=== PATIENT | male | born 1970 | race African-American/Black ===

== ENCOUNTER 2021-10-29 02:24 | Emergency (ER) | payer MEDICAID ==
[~2021-10-29] VITALS: Ht 172.7 cm; Wt 142.9 kg
--- NOTE | 2021-10-29 02:36 | NUR ---
[id number] FROM FOUR SEASON C/O LEFT EYE X 5 DAYS PAIN AND N/V STARTED LAST NIGHT. PATIENT ALERT AND ORIENTED X3. AMBULATORY WITH NON LABORED BREATHING IN BED 04 ON MONITOR AWAITING MD AGOSTO.
[2021-10-29] MEDS ORDERED: MORPHINE SULFATE INJ 2 MG/ML DISP.SYRIN IV ONE (03:00)
[2021-10-29] MEDS ORDERED: ONDANSETRON HCL/PF 4 MG/2 ML VIAL IV ONE ×2 (03:00→06:30)
[2021-10-29] MEDS ORDERED: FLUORESCEIN SODIUM OPHTH 1 EA STRIP ONE (03:01)
[2021-10-29] MEDS ORDERED: ONDANSETRON HCL/PF 4 MG/2 ML VIAL ONE ×3 (03:12→07:59)
[2021-10-29] MEDS ORDERED: MORPHINE SULFATE INJ 4 MG/ML DISP.SYRIN ONE (03:12)
--- NOTE | 2021-10-29 03:13 | NUR ---
BLOOD COLLECTED AND SENTT O LAB
[2021-10-29 03:23] LABS: BASOPHILS % (AUTO) 0.4 % (0.0-2.0); EOSINOPHILS % (AUTO) 0.5 % (0.0-6.0); HEMATOCRIT 44 % (39-51); HEMOGLOBIN 14.9 g/dL (13.5-17.5); LYMPHOCYTES # (AUTO) 1.1 K/uL (0.8-4.8); LYMPHOCYTES % (AUTO) 13.2 % (20.0-44.0); MEAN CORPUSCULAR HGB CONC 34 g/dl (31.0-36.0); MEAN CORPUSCULAR VOLUME 83 fL (80-96); MONOCYTES # (AUTO) 0.5 K/uL (0.1-1.30); NEUTROPHILS # (AUTO) 6.5 K/uL (1.8-8.9); NEUTROPHILS % (AUTO) 79.9 % (43.0-81.0); PLATELET COUNT (AUTO) 133 K/uL (150-450); RED BLOOD CELL COUNT(AUTO) 5.27 MIL/uL (4.5-6.0); WHITE BLOOD COUNT (AUTO) 8.1 K/uL (4.3-11.0)
[2021-10-29 03:33] LABS: CALCIUM, SERUM 8.7 mg/dL (8.5-10.1); CREATININE 1.2 mg/dL (0.6-1.3); POTASSIUM 3.4 mmol/L (3.5-5.1)
[2021-10-29 03:38] LABS: ALBUMIN 3.5 g/dL (3.4-5.0); BILIRUBIN,DIRECT 0.2 mg/dL (0.0-0.2); BILIRUBIN,TOTAL 0.6 mg/dL (0.2-1.0); TOTAL PROTEIN, SERUM 7.2 g/dL (6.4-8.2)
[2021-10-29] MEDS ORDERED: POTASSIUM CHLORIDE 20 MEQ TAB.PRT.SR PO ONE ×2 (04:00→06:09)
[2021-10-29] MEDS ORDERED: METOCLOPRAMIDE HCL 10 MG/2 ML VIAL ONE ×2 (04:50→09:50)
[2021-10-29] MEDS ORDERED: HYDROMORPHONE 1 MG/1 ML DISP.SYRIN ONE (04:50)
[2021-10-29] MEDS ORDERED: HYDROMORPHONE 1 MG/1 ML DISP.SYRIN IV ONE (05:00)
[2021-10-29] MEDS ORDERED: METOCLOPRAMIDE HCL 10 MG/2 ML VIAL IV ONE ×2 (05:00→10:00)
--- NOTE | 2021-10-29 06:07 | NUR ---
PT WILL BE TRANSPORTED [facility]IA [facility] BACK TO FACILITY AT 0900
[2021-10-29] MEDS ORDERED: hydrALAZINE HCL IV 20 MG VIAL ONE ×2 (06:08→07:29)
--- NOTE | 2021-10-29 06:20 | NUR ---
CALLED [facility] [phone], CALLED X2 NO ANSWER
[2021-10-29] MEDS ORDERED: acetaZOLAMIDE SODIUM 500 MG/VIAL VIAL IV ONE (06:30)
[2021-10-29] MEDS ORDERED: TIMOLOL 0.5% SOLN OPHTH 5 ML BOTTLE LEFTEYE ONE (06:30)
[2021-10-29] MEDS ORDERED: PILOCARPINE 1% OPHT DROP 15 ML BOTTLE LEFTEYE ONE (06:30)
[2021-10-29] MEDS ORDERED: acetaZOLAMIDE SODIUM 500 MG/VIAL VIAL ONE (06:33)
[2021-10-29] MEDS ORDERED: WATER FOR INJECTION,STERILE 10 ML ONE (06:37)
--- NOTE | 2021-10-29 06:42 | NUR ---
COVID SWAB COLLECTED SENT TO LAB
--- NOTE | 2021-10-29 06:44 | NUR ---
eye drops not available in ER [facility]
[2021-10-29] MEDS ORDERED: TIMOLOL 0.5% SOLN OPHTH 5 ML BOTTLE ONE (07:06)
[2021-10-29] MEDS ORDERED: ERYTHROMYCIN BASE OPHTH 3.5 GM TUBE ONE (07:06)
--- NOTE | 2021-10-29 07:08 | NUR ---
pilocarpine 1% not avail per pharmacy, ermd notified
--- NOTE | 2021-10-29 07:09 | NUR ---
[facility] TRANSPORT 0800.
--- NOTE | 2021-10-29 07:20 | NUR ---
report given to lobo, per facility protocol, if bp can be lower than 160. ermd notified
[2021-10-29] MEDS ORDERED: PILOCARPINE 2% OPTH DROP 15 ML BOTTLE LEFTEYE ONE (07:30)
[2021-10-29] MEDS ORDERED: ERYTHROMYCIN BASE OPHTH 3.5 GM TUBE LEFTEYE ONE (07:30)
[2021-10-29] MEDS ORDERED: hydrALAZINE HCL IV 20 MG VIAL IV ONE (07:30)
[2021-10-29] MEDS ORDERED: HYDR-3976 PO (07:38)
[2021-10-29] MEDS ORDERED: ERYT3.5O9 LEFTEYE (07:38)
[2021-10-29] MEDS ORDERED: ONDA4TAB5 PO (07:38)
--- NOTE | 2021-10-29 08:30 | NUR ---
[facility] DOES NOT HAVE A BARIATRIC BED AVAILABLE.
--- NOTE | 2021-10-29 08:31 | NUR ---
CALLED [facility] FOR BARIATRIC BLS TRANSPORT ETA 1600.
[2021-10-29] MEDS ORDERED: ACET-868 PO (09:58)
[2021-10-29] MEDS ORDERED: AMIT25TA9 PO (09:58)
[2021-10-29] MEDS ORDERED: ASPI-1169 PO (09:58)
[2021-10-29] MEDS ORDERED: LOPE2TAB25 PO (09:58)
[2021-10-29] MEDS ORDERED: ACET-2605 PO (09:58)
[2021-10-29] MEDS ORDERED: HYDR-4303 PO (09:58)
[2021-10-29] MEDS ORDERED: SENN-261 PO (09:58)
[2021-10-29] MEDS ORDERED: INSU100V7 SQ (09:58)
[2021-10-29] MEDS ORDERED: INSU100V39 SQ (09:58)
[2021-10-29] MEDS ORDERED: NA P133E RC (09:58)
[2021-10-29] MEDS ORDERED: CAND16TA13 PO (09:58)
[2021-10-29] MEDS ORDERED: GABA-532 PO (09:58)
[2021-10-29] MEDS ORDERED: BISA10SU11 RC (09:58)
--- NOTE | 2021-10-29 11:28 | NUR ---
[facility] ETA 1300.
[2021-10-29 12:58] VITALS: BP 152/59
--- NOTE | 2021-10-29 13:02 | NUR ---
TRANPSORTATION ARRIVED, REPORT GIVEN. PT BEING TRANSPORTED BACK TO FACILITY IN STABLE CONDITION.
== END 2021-10-29 12:59 ==
LOC: ER 02:29
DX: H40.052 Ocular hypertension, left eye (principal); H57.89 Other specified disorders of eye and adnexa; H54.62 Unqualified visual loss, left eye, normal vision right eye; R11.2 Nausea with vomiting, unspecified; Z20.822 Contact with and (suspected) exposure to COVID-19; E87.6 Hypokalemia; I10 Essential (primary) hypertension; E11.9 Type 2 diabetes mellitus without complications
CPT/HCPCS: 99285; 70450; 96374; 96375; 87426; 96376; 85025; 80048; 83605; 80076; 36415; 70480; J1120; J0360 ×2; J2270; J2765 ×2; J2405 ×3; J1170; C9803